=== PATIENT | male | born 1955 | race Caucasian/White ===

== ENCOUNTER 2018-07-15 08:40 | Inpatient (IN) | payer SELFPAY ==
[~2018-07-15] VITALS: Ht 165.1 cm; Wt 80.7 kg
[~2018-07-15 08:40] MED LIST: PNEUMOCOCCAL 23-VAL P-SAC VAC 0.5 ML IM ONE
[2018-07-15] MEDS ORDERED: LEVOFLOXACIN 750MG PREMIX 150 ML IV ONE (12:45)
[2018-07-15] MEDS ORDERED: SODIUM CHLORIDE 0.9% 1,000 ML IV ONE (12:45)
[2018-07-15] MEDS ORDERED: VANCOMYCIN 1 G PREMIX 200 ML IV SCH (12:45)
[2018-07-15 13:30] LABS: BASOPHILS % 0.5 % (0.0-2.0); EOSINOPHILS % 0.9 % (0.0-5.0); HEMATOCRIT. 47.5 % (42.0-52.0); HEMOGLOBIN. 16.2 g/dL (14.0-18.0); LYMPHOCYTES % 12.8 % (20.0-50.0); MEAN CORPUSCULAR HEMOGLOBIN 33.9 pg (28.0-32.0); MEAN CORPUSCULAR VOLUME 99.4 fL (80.0-94.0); MEAN PLATELET VOLUME 9.7 fl (7.4-10.4); MONOCYTES % 8.5 % (2.0-8.0); NEUTROPHILS % 77.3 % (40.0-76.0); PLATELET 183 x1000/uL (130-400); RED BLOOD CELL COUNT 4.78 mill/uL (4.7-6.1); RED CELL DISTRIBUTION WIDTH 13.2 % (11.6-14.6)
[2018-07-15 13:37] LABS: CHLORIDE 106 mEq/L (98-107)
[2018-07-15] MEDS ORDERED: IOHEXOL-300 100 ML BOTTLE ONE (15:18)
[2018-07-15] MEDS ORDERED: DOCUSATE SODIUM 100MG CAPSULE PO PRN (20:30)
[2018-07-15] MEDS ORDERED: HYDROCODONE/ACETAMINOPHEN 5/325MG TABLET PO PRN (20:30)
[2018-07-15] MEDS ORDERED: HYDROMORPHONE HCL/PF 2MG/ML CPJ IV PRN (20:30)
[2018-07-15] MEDS ORDERED: GUAIFENESIN 200MG/10ML SUGAR FREE UDC PO PRN (20:30)
[2018-07-15] MEDS ORDERED: MAGNESIUM/ALUMINUM HYDROXIDE/SIMETHICONE 30ML UDC PO PRN (20:30)
[2018-07-15] MEDS ORDERED: ACETAMINOPHEN 325MG TABLET PO PRN (20:30)
[2018-07-15] MEDS ORDERED: ONDANSETRON HCL 4MG/2ML INJ IV PRN (20:30)
[2018-07-15] MEDS ORDERED: CLONIDINE 0.1MG TABLET PO PRN (20:30)
[2018-07-15 20:35] VITALS: BP 164/67
[2018-07-15] MEDS: PIPERACILLIN/TAZ 3.375G PREMIX 50 ML IV SCH (22:57)
[2018-07-16] VITALS: BP 166/71
[2018-07-16] MEDS: SODIUM CHLORIDE 0.45% 1,000 ML IV SCH (00:12)
[2018-07-16] MEDS: VANCOMYCIN 1 G PREMIX 200 ML IV SCH ×3 (02:35→22:30)
[2018-07-16 04:00] VITALS: BP 145/67
[2018-07-16] MEDS: PIPERACILLIN/TAZ 3.375G PREMIX 50 ML IV SCH ×3 (05:39→21:58)
[2018-07-16 07:20] LABS: BASOPHILS % 0.6 % (0.0-2.0); EOSINOPHILS % 1.5 % (0.0-5.0); HEMATOCRIT. 44.8 % (42.0-52.0); HEMOGLOBIN. 15.4 g/dL (14.0-18.0); LYMPHOCYTES % 17.3 % (20.0-50.0); MEAN CORPUSCULAR HEMOGLOBIN 34.2 pg (28.0-32.0); MEAN CORPUSCULAR VOLUME 99.5 fL (80.0-94.0); MEAN PLATELET VOLUME 10.2 fl (7.4-10.4); NEUTROPHILS % 69.6 % (40.0-76.0); PLATELET 169 x1000/uL (130-400); RED CELL DISTRIBUTION WIDTH 13.1 % (11.6-14.6)
[2018-07-16 07:56] LABS: CHLORIDE 106 mEq/L (98-107)
[2018-07-16] MEDS ORDERED: INFLUENZA VIRUS VACCINE(AFLURIA) 0.5ML SYR IM ONE (10:00)
[2018-07-16] MEDS: ENOXAPARIN 40MG/0.4ML SYR SUBCUT SCH (10:18)
[2018-07-16 12:00] VITALS: BP 161/75
[2018-07-16 16:00] VITALS: BP 142/83
[2018-07-16 20:00] VITALS: BP 129/55
[2018-07-17] VITALS: BP 130/67
[2018-07-17 04:00] VITALS: BP 153/80
[2018-07-17] MEDS: SODIUM CHLORIDE 0.45% 1,000 ML IV SCH (04:38)
[2018-07-17] MEDS: PIPERACILLIN/TAZ 3.375G PREMIX 50 ML IV SCH (06:11)
[2018-07-17 08:00] VITALS: BP 156/77
[2018-07-17] MEDS: ENOXAPARIN 40MG/0.4ML SYR SUBCUT SCH (11:47)
[2018-07-17 12:00] VITALS: BP_SYST 155; BP_SYST 157; BP_DIAS 57; BP_DIAS 78
[2018-07-17] MEDS: VANCOMYCIN 1 G PREMIX 200 ML IV SCH (12:21)
[2018-07-17 13:08] VITALS: BP 155/78
== END 2018-07-17 13:57 | disposition home or self-care (01) | DRG 383 ==
LOC: ER 09:58 → EDBEDREQ 14:49 → EDBEDREQTM 14:49 → ENRESERV 19:30 → 6EST 20:15
PROVIDERS: ADMIT Hospitalist; ATTEND Hospitalist
DX: L03.213 Periorbital cellulitis (principal); Z97.0 Presence of artificial eye; L03.211 Cellulitis of face
CPT/HCPCS: 36415; 70481; 80048; 80202; 83605; 90686; 90732; 93970; 96365; 99285; J1170; J1650; J1956; J2543; J3370; J7030; Q9967